=== PATIENT | male | born 1930 | race Caucasian/White ===

== ENCOUNTER → 2018-09-18 | Emergency (ER) | payer OTHER ==
[~2018-09-18] MED LIST: CEFTRIAXONE/SWI 1gm 1 GM/10 ML SYR ONE; FENTANYL CITR 100 MCG/2 ML ONE; FUROSEMIDE 20 MG/ 2ML VIAL ONE; IPRATROPIUM BROM 0.5MG/2.5ML ONE; LEVALBUTEROL 1.25 MG/3 ML NEB ONE; METHYLPREDNISOLONE 125 MG INJ ONE; METRONIDAZOLE 500mg IVPB 500 MG/100 ML BAG IV ONE; NA CHLORIDE 0.9% 1,000 ML ONE; ONDANSETRON 4 MG/2 ML VIAL ONE
[2018-09-18 13:53] LABS: Absolute Lymphocytes (CBC) 1.8 K/uL (0.7-4.9); Basophils % 0.8 % (0-1.3); Eosinophils % 4.5 % (0-4.4); Hematocrit 39.2 % (39.6-49.0); Lymphocytes % 24.8 % (15.3-44.8); Monocytes % 13.5 % (3.3-12.3); RBC Red Blood Cell Count 4.13 M/uL (4.33-5.43)
[2018-09-18 14:00] LABS: Protime INR 1.26
[2018-09-18 14:15] LABS: Albumin 3.7 g/dL (3.4-5.0); Bilirubin Direct 0.4 mg/dL (0-0.2); Bilirubin Total 0.8 mg/dL (0.2-1.0); Magnesium 2.3 mg/dL (1.8-2.4); Potassium 4.8 mmol/L (3.5-5.1); Protein, Total 7.2 g/dL (6.4-8.2); Troponin (Emerg Dept Use Only) 0.03 ng/mL (0.0-0.045)
--- NOTE | 2018-09-18 14:34 | RAD REPORT ---
EXAM DESCRIPTION: RAD - Chest Single View - 09/18/2018 2:26 pm CLINICAL HISTORY: COUGH Chest pain. COMPARISON: Chest Pa And Lat (2 Views) dated 03/05/2017; Chest Single View dated 11/14/2016; Chest Sing le View dated 04/13/2016; CHEST SINGLE VIEW dated 09/09/2015 FINDINGS: Portable technique limits examination quality. Small bilateral pleural effusions are seen with chronic prominence of the interstitial markings bilat erally. No focal pulmonary infiltrate typical of bacterial pneumonia is seen. The heart is mildly pro minent in size with a dual lead pacer device present. Sternotomy wires noted.Hardware is present in t he right clavicle. IMPRESSION: Predominate chronic interstitial opacities are present with small bilateral pleural effu sions noted.
--- NOTE | 2018-09-18 14:37 | RAD REPORT ---
EXAM DESCRIPTION: RAD - Foot Right 3 View - 09/18/2018 2:26 pm CLINICAL HISTORY: PAIN COMPARISON: No comparisons FINDINGS: Diffuse osteopenia is seen. No acute fracture or dislocation is evident. Small curvilinear radiopaque foreign body is seen along the plantar ball of the foot projecting between the first and second metatarsal heads.
--- NOTE | 2018-09-18 15:50 | EKG ---
Test Date: 2018-09-18 Test Time: 13:22:22 Manufacturing Technician: WILMER MEASUREMENT RESULTS: Intervals: Rate: 91 [place]: QRSD: 190 QT: 470 QTc: 578 [place]: P: WA: QRS: 236 T: 97 INTERPRETIVE STATEMENTS: Electronic ventricular pacemaker Compared to ECG 03/06/2017 06:48:45 No significant changes Electronically Signed On 09-18-18 15:50:03 CDT by Jeet Sheth
[2018-09-18 16:13] LABS: Urine Blood NEGATIVE (NEG); Urine Glucose NEGATIVE (NEG); Urine Protein NEGATIVE (NEG); Urine pH 5.5 (5.0-7.0)
--- NOTE | 2018-09-18 16:47 | RAD REPORT ---
EXAM DESCRIPTION: CT - Abdomen Pelvis Wo Contrast - 09/18/2018 4:17 pm CLINICAL HISTORY: Abdominal pain COMPARISON: 2014 TECHNIQUE: Computed axial tomography of the abdomen and pelvis was obtained. IV was not requested. O ral contrast was given. Coronal reconstructions performed. All CT scans are performed using dose optimization technique as appropriate and may include automated exposure control or mA/KV adjustment according to patient size. FINDINGS: The evaluation of solid organs and vessels is limited secondary to the lack of contrast a dministration. Gynecomastia. Right calcified pleural plaques. Sub centimeter left lower lobe nodule unchanged likely benign Moderate hiatal hernia. A cirrhotic liver suspected Spleen, pancreas, right adrenal appear grossly normal. Small left adrenal adenoma is suspected. The right kidney appears grossly normal. Small nonobstructing left renal calculi. 2.1 centimeter left renal mass unchanged probably a cyst. The appendix is normal. Diverticula stem from the colon without evidence of diverticulitis. Small amount of ascites within the abdomen and pelvis IMPRESSION: Cirrhosis suspected Small amount of ascites Nonobstructing left renal calculi
--- NOTE | 2018-09-18 17:35 | EDPHYS ---
Physician Documentation [facility] Name: Ishmael Cervantes Age: 88 yrs Sex: Male : 1930 Arrival Date: 09/18/2018 Time: 12:44 Bed 30 Private MD: ED Physician Nilton Perez HPI: 09/18 13:53 This 88 yrs old Male presents to ER via Wheelchair with complaints of denis Abdominal Pain, Breathing Difficulty, Ankle Injury. 13:53 The patient has shortness of breath at rest, with light activity. Onset: The denis symptoms/episode began/occurred 3 day(s) ago. Duration: The symptoms are continuous, and are unchanged since they started. The patient's shortness of breath has no apparent modifying factors. Associated signs and symptoms: The patient has no apparent associated signs or symptoms. Severity of symptoms: At their worst the symptoms were mild moderate in the emergency department the symptoms are unchanged. The patient has experienced similar episodes in the past, a few times. Historical: - Allergies: 12:50 Codeine; sv - PMHx: 12:50 ACUTE POSTHEMORRHAGIC ANEMIA; AFIB; ATHEROSCLEROSIS; CARDIAC PACEMAKER; COPD; sv DYSPHAGIA; enlarged prostate; generalized weakness; GI Bleed; Hypertension; muscle atrophy; NONTHEUMATIC AORTIC VALVE DISORDER; OBSTRUCTIVE SLEEP APNEA; Pneumonia; PULMONARY HYPERTENSION; - PSHx: 12:50 Heart valve replacement; fx arms; shoulder; foot; Cholecystectomy; sv - Immunization history:: Flu vaccine is not up to date. - Social history:: Smoking status: Patient/guardian denies using tobacco, Patient uses alcohol, occasionally. - Ebola Screening: : No symptoms or risks identified at this time. ROS: 13:54 Constitutional: Negative for fever, chills, and weight loss, Eyes: Negative for injury, denis pain, redness, and discharge, ENT: Negative for injury, pain, and discharge, Neck: Negative for injury, pain, and swelling, Cardiovascular: Negative for chest pain, palpitations, and edema, Back: Negative for injury and pain, : Negative for injury, bleeding, discharge, and swelling, Skin: Negative for injury, rash, and discoloration, Neuro: Negative for headache, weakness, numbness, tingling, and seizure, Psych: Negative for depression, anxiety, suicide ideation, homicidal ideation, and hallucinations, Allergy/Immunology: Negative for hives, rash, and allergies, Endocrine: Negative for neck swelling, polydipsia, polyuria, polyphagia, and marked weight changes, Hematologic/Lymphatic: Negative for swollen nodes, abnormal bleeding, and unusual bruising. 13:54 Respiratory: Positive for cough, shortness of breath, Negative for wheezing. Exam: 13:54 Constitutional: This is a well developed, well nourished patient who is awake, alert, denis and in no acute distress. Head/Face: Normocephalic, atraumatic. Eyes: Pupils equal round and reactive to light, extra-ocular motions intact. Lids and lashes normal. Conjunctiva and sclera are non-icteric and not injected. Cornea within normal limits. Periorbital areas with no swelling, redness, or edema. ENT: Nares patent. No nasal discharge, no septal abnormalities noted. Tympanic membranes are normal and external auditory canals are clear. Oropharynx with no redness, swelling, or masses, exudates, or evidence of obstruction, uvula midline. Mucous membranes moist. Neck: Trachea midline, no thyromegaly or masses palpated, and no cervical lymphadenopathy. Supple, full range of motion without nuchal rigidity, or vertebral point tenderness. No Meningismus. Chest/axilla: Normal chest wall appearance and motion. Nontender with no deformity. No lesions are appreciated. Cardiovascular: Regular rate and rhythm with a normal S1 and S2. No gallops, murmurs, or rubs. Normal PMI, no JVD. No pulse deficits. Respiratory: Lungs have equal breath sounds bilaterally, clear to auscultation and percussion. No rales, rhonchi or wheezes noted. No increased work of breathing, no retractions or nasal flaring. Back: No spinal tenderness. No costovertebral tenderness. Full range of motion. Male : Normal genitalia with no discharge or lesions. Skin: Warm, dry with normal turgor. Normal color with no rashes, no lesions, and no evidence of cellulitis. MS/ Extremity: Pulses equal, no cyanosis. Neurovascular intact. Full, normal range of motion. Neuro: Awake and alert, GCS 15, oriented to person, place, time, and situation. Cranial nerves II-XII grossly intact. Motor strength 5/5 in all extremities. Sensory grossly intact. Cerebellar exam normal. Normal gait. Psych: Awake, alert, with orientation to person, place and time. Behavior, mood, and affect are within normal limits. 13:54 Abdomen/GI: Inspection: abdomen appears normal, Bowel sounds: normal, Palpation: mild abdominal tenderness, moderate abdominal tenderness, in the left upper quadrant and left lower quadrant. Vital Signs: 12:50 BP 124 / 68; Pulse 87; Resp 20; Temp 97.8(O); Pulse Ox 100% ; Height 5 ft. 8 in. sv (172.72 cm); 13:30 BP 130 / 78; Pulse 75; Resp 19; Pulse Ox 100% on 2 lpm NC; ca1 14:00 BP 135 / 78; Pulse 83; Resp 19; Pulse Ox 100% on 2 lpm NC; ca1 14:30 BP 149 / 83; Pulse 82; Resp 22; Pulse Ox 100% on 2 lpm NC; ca1 15:00 BP 132 / 82; Pulse 79; Resp 17; Pulse Ox 100% on 2 lpm NC; ca1 16:32 BP 113 / 78; Pulse 83; Resp 17; Temp 98.0; Pulse Ox 98% ; lt1 17:00 BP 112 / 74; Pulse 85; Resp 21; Pulse Ox 97% on R/A; ca1 17:30 BP 127 / 77; Pulse 97; Resp 18; Pulse Ox 99% on R/A; ca1 18:00 BP 132 / 77; Pulse 108; Resp 21; Pulse Ox 98% on R/A; ca1 18:45 BP 130 / 71; Pulse 77; Resp 22; Pulse Ox 100% on R/A; ca1 19:30 BP 126 / 63; Pulse 88; Resp 24; Pulse Ox 97% on R/A; ca1 20:00 BP 115 / 69; Pulse 80; Resp 21; Pulse Ox 99% on R/A; ca1 20:30 BP 116 / 66; Pulse 90; Resp 20; Pulse Ox 100% on R/A; ca1 21:00 BP 127 / 75; Pulse 76; Resp 20; Pulse Ox 100% on R/A; ca1 21:30 BP 129 / 70; Pulse 82; Resp 19; Pulse Ox 100% on R/A; ca1 22:15 BP 131 / 75; Pulse 90; Resp 20; Pulse Ox 100% on R/A; ca1 MDM: 12:59 Patient medically screened. [facility] 13:56 Data reviewed: vital signs, nurses notes, lab test result(s), EKG, radiologic studies, [facility] CT scan, plain films. 09/18 13:28 Order name: Basic Metabolic Panel; Complete Time: 14:49 [facility] 09/18 13:28 Order name: CBC with Diff; Complete Time: 14:49 [facility] 09/18 13:28 Order name: LFT's; Complete Time: 14:49 [facility] 09/18 13:28 Order name: Magnesium; Complete Time: 14:49 [facility] 09/18 13:28 Order name: NT PRO-BNP; Complete Time: 14:49 [facility] 09/18 13:28 Order name: PT-INR; Complete Time: 14:49 [facility] 09/18 13:28 Order name: Troponin (emerg Dept Use Only); Complete Time: 14:49 [facility] 09/18 13:28 Order name: XRAY Chest (1 view); Complete Time: 14:49 [facility] 09/18 13:28 Order name: Lipase; Complete Time: 14:49 [facility] 09/18 13:28 Order name: Urine Culture [facility] 09/18 13:28 Order name: Blood Culture Adult (2) [facility] 09/18 13:53 Order name: Lactate; Complete Time: 16:10 [facility] 09/18 14:49 Order name: Urine Dipstick--Ancillary (enter results); Complete Time: 17:25 09/18 18:26 Order name: Lactate Sepsis 2 HR Follow-up [facility] 09/18 13:28 Order name: EKG; Complete Time: 13:29 [facility] 09/18 13:28 Order name: Cardiac monitoring; Complete Time: 13:56 [facility] 09/18 13:53 Order name: Foot Right 3 View XRAY; Complete Time: 14:49 [facility] 09/18 13:58 Order name: XRAY Ankle RIGHT 3 view; Complete Time: 14:49 [facility] 09/18 14:51 Order name: Abdomen ; Complete Time: 17:25 [facility] 09/18 13:28 Order name: EKG - Nurse/Tech; Complete Time: 13:56 [facility] 09/18 13:28 Order name: IV Saline Lock; Complete Time: 13:56 [facility] 09/18 13:28 Order name: Labs collected and sent; Complete Time: 13:56 [facility] 09/18 13:28 Order name: O2 Per Protocol; Complete Time: 13:56 [facility] 09/18 13:28 Order name: O2 Sat Monitoring; Complete Time: 13:56 [facility] 09/18 13:28 Order name: Urine Dipstick-Ancillary (obtain specimen); Complete Time: 15:09 [facility] Administered Medications: Discontinued: NS 0.9% 1000 ml IV at 125 ml/hr continuous 13:40 Drug: NS 0.9% 1000 ml Route: IV; Rate: 125 ml/hr; Site: right antecubital; ca1 13:58 Drug: Zofran 4 mg Route: IVP; Site: right antecubital; ca1 15:00 Follow up: Response: No adverse reaction; Nausea is decreased ca1 17:04 Follow up: Response: No adverse reaction; Marked relief of symptoms mg2 14:00 Drug: fentaNYL (PF) 25 mcg Route: IVP; Site: right antecubital; ca1 15:00 Follow up: Response: No adverse reaction; Pain is decreased ca1 17:03 Drug: Flagyl 500 mg Volume: 100 ml; Route: IVPB; Rate: 200 ml/hr; Infused Over: 30 mg2 mins; Site: right antecubital; 18:00 Follow up: Response: No adverse reaction; IV Status: Completed infusion ca1 17:04 Drug: Rocephin - (cefTRIAXone) 1 grams Route: IVPB; Infused Over: 30 mins; Site: right mg2 antecubital; 23:41 Follow up: IV Status: Completed infusion; IVP per pharmacy protocol ca1 18:51 Drug: Xopenex 1.25 mg Route: Inhalation; mg2 18:51 Drug: AtroVENT Aerosol 0.5 mg Route: Inhalation; mg2 18:51 Drug: SOLU-Medrol 125 mg Route: IVP; Site: right antecubital; mg2 20:00 Follow up: Response: No adverse reaction; Marked relief of symptoms ca1 18:51 Drug: Lasix 20 mg Route: IVP; Site: right antecubital; mg2 20:20 Follow up: Urine output 1200 ml; Response: No adverse reaction ca1 20:02 Drug: fentaNYL (PF) 25 mcg Route: IVP; Site: right antecubital; ca1 21:00 Follow up: Response: No adverse reaction; Pain is decreased ca1 Disposition: 09/18/18 17:34 Hospitalization ordered by Juan Dominguez for Inpatient Admission. Preliminary diagnosis are Abdominal tenderness, Dyspnea, Sprain of ankle, Unspecified kidney failure, Unspecified combined systolic (congestive) and diastolic (congestive) heart failure, Pulmonary fibrosis, unspecified, Chronic obstructive pulmonary disease, unspecified. - Bed requested for Telemetry/MedSurg (Inpatient). - Status is Inpatient Admission. ca1 - Condition is Fair. - Problem is new. - Symptoms have improved. UTI on Admission? No Signatures: Dispatcher [employer] [facility] Della Painting RN RN sv Anderson, Corey, MD MD cha Gardose, Michele, RN RN [facility] Rosa Lion RN RN ca1 Corrections: (The following items were deleted from the chart) 14:51 13:54 Abdomen Pelvis W Con+CT.RAD.BRZ ordered. [facility] EDMA 17:35 17:34 Hospitalization Ordered by [facility] for Observation. Preliminary [facility] diagnosis is Abdominal tenderness; Dyspnea. Bed requested for Telemetry/MedSurg (observation). Status is Observation. Condition is Fair. Problem is new. Symptoms have improved. UTI on Admission? No. denis 17:35 17:35 09/18/2018 17:34 Hospitalization Ordered by [facility] for Observation. [facility] Preliminary diagnosis is Abdominal tenderness; Dyspnea; Sprain of ankle. Bed requested for Telemetry/MedSurg (observation). Status is Observation. Condition is Fair. Problem is new. Symptoms have improved. UTI on Admission? No. denis 17:37 17:35 09/18/2018 17:34 Hospitalization Ordered by [facility] for Observation. [facility] Preliminary diagnosis is Abdominal tenderness; Dyspnea; Sprain of ankle; Unspecified kidney failure. Bed requested for Telemetry/MedSurg (observation). Status is Observation. Condition is Fair. Problem is new. Symptoms have improved. UTI on Admission? No. denis 17:37 17:37 09/18/2018 17:34 Hospitalization Ordered by [facility] for Observation. [facility] Preliminary diagnosis is Abdominal tenderness; Dyspnea; Sprain of ankle; Unspecified kidney failure; Unspecified combined systolic (congestive) and diastolic (congestive) heart failure; Pulmonary fibrosis, unspecified; Chronic obstructive pulmonary disease, unspecified. Bed requested for Telemetry/MedSurg (observation). Status is Observation. Condition is Fair. Problem is new. Symptoms have improved. UTI on Admission? No. denis 18:02 17:37 09/18/2018 17:34 Hospitalization Ordered by [facility] for Inpatient denis Admission. Preliminary diagnosis is Abdominal tenderness; Dyspnea; Sprain of ankle; Unspecified kidney failure; Unspecified combined systolic (congestive) and diastolic (congestive) heart failure; Pulmonary fibrosis, unspecified; Chronic obstructive pulmonary disease, unspecified. Bed requested for Telemetry/MedSurg (Inpatient). Status is Inpatient Admission. Condition is Fair. Problem is new. Symptoms have improved. UTI on Admission? No. [facility] 18:54 18:02 09/18/2018 17:34 Hospitalization Ordered by Juan Dominguez DO for Observation. [facility] Preliminary diagnosis is Abdominal tenderness; Dyspnea; Sprain of ankle; Unspecified kidney failure; Unspecified combined systolic (congestive) and diastolic (congestive) heart failure; Pulmonary fibrosis, unspecified; Chronic obstructive pulmonary disease, unspecified. Bed requested for Telemetry/MedSurg (observation). Status is Observation. Condition is Fair. Problem is new. Symptoms have improved. UTI on Admission? No. denis 23:40 18:54 09/18/2018 17:34 Hospitalization Ordered by Juan Dominguez DO for Inpatient ca1 Admission. Preliminary diagnosis is Abdominal tenderness; Dyspnea; Sprain of ankle; Unspecified kidney failure; Unspecified combined systolic (congestive) and diastolic (congestive) heart failure; Pulmonary fibrosis, unspecified; Chronic obstructive pulmonary disease, unspecified. Bed requested for Telemetry/MedSurg (Inpatient). Status is Inpatient Admission. Condition is Fair. Problem is new. Symptoms have improved. UTI on Admission? No. denis
--- NOTE | 2018-09-18 17:35 | ER ---
Nurse's Notes [facility] Name: Ishmael Cervantes Age: 88 yrs Sex: Male : 1930 Arrival Date: 09/18/2018 Time: 12:44 Bed 30 Private MD: Diagnosis: Abdominal tenderness;Dyspnea;Sprain of ankle;Unspecified kidney failure;Unspecified combined systolic (congestive) and diastolic (congestive) heart failure;Pulmonary fibrosis, unspecified;Chronic obstructive pulmonary disease, unspecified Presentation: 09/18 12:44 Presenting complaint: [facility] states[facility] after rolling over sv it with a wheelchair. abd pain (known hiatal hernia) sent for a CT scan. Transition of care: patient was not received from another setting of care. Onset of symptoms is unknown. Care prior to arrival: None. 12:44 Method Of Arrival: Wheelchair sv 12:44 Acuity: JORGE 3 sv 13:05 Risk Assessment: Do you want to hurt yourself or someone else? Patient reports no ca1 desire to harm self or others. 13:05 Initial Sepsis Screen: Does the patient meet any 2 criteria? No. Patient's initial ca1 sepsis screen is negative. Does the patient have a suspected source of infection? No. Patient's initial sepsis screen is negative. Historical: - Allergies: 12:50 Codeine; sv - PMHx: 12:50 ACUTE POSTHEMORRHAGIC ANEMIA; AFIB; ATHEROSCLEROSIS; CARDIAC PACEMAKER; COPD; sv DYSPHAGIA; enlarged prostate; generalized weakness; GI Bleed; Hypertension; muscle atrophy; NONTHEUMATIC AORTIC VALVE DISORDER; OBSTRUCTIVE SLEEP APNEA; Pneumonia; PULMONARY HYPERTENSION; - PSHx: 12:50 Heart valve replacement; fx arms; shoulder; foot; Cholecystectomy; sv - Immunization history:: Flu vaccine is not up to date. - Social history:: Smoking status: Patient/guardian denies using tobacco, Patient uses alcohol, occasionally. - Ebola Screening: : No symptoms or risks identified at this time. Screenin:02 Abuse screen: Denies threats or abuse. Denies injuries from another. Nutritional ca1 screening: No deficits noted. Tuberculosis screening: No symptoms or risk factors identified. Fall Risk None identified. Assessment: 13:05 General: Appears in no apparent distress. comfortable, Behavior is calm, cooperative, ca1 appropriate for age. Pain: Complains of pain in abdomen Pain does not radiate. Pain currently is 7 out of 10 on a pain scale. Quality of pain is described as throbbing, Pain began chronic pain started years ago Is chronic. Neuro: Level of Consciousness is awake, alert, obeys commands, Oriented to person, place, time, situation. Cardiovascular: Heart tones S1 S2 present Capillary refill < 3 seconds Patient's skin is warm and dry. Rhythm is Respiratory: Reports shortness of breath Airway is patent Respiratory effort is even, unlabored, Respiratory pattern is regular, symmetrical, Breath sounds are clear bilaterally. GI: Abdomen is round non-distended, Bowel sounds present X 4 quads. Abd is soft X 4 quads Abdomen is tender to palpation in epigastric area. : No deficits noted. No signs and/or symptoms were reported regarding the genitourinary system. EENT: No deficits noted. No signs and/or symptoms were reported regarding the EENT system. Derm: Skin is fragile, is thin, has skin tears on on both arms Bruising that is dark purple, on right arm and left arm. Musculoskeletal: Circulation, motion, and sensation intact. Capillary refill < 3 seconds, Range of motion: limited in right ankle. 14:00 Reassessment: Patient appears in no apparent distress at this time. Patient and/or ca1 family updated on plan of care and expected duration. Pain level reassessed. Patient is alert, oriented x 3, equal unlabored respirations, skin warm/dry/pink. 15:00 Reassessment: Patient appears in no apparent distress at this time. Patient and/or ca1 family updated on plan of care and expected duration. Pain level reassessed. Patient is alert, oriented x 3, equal unlabored respirations, skin warm/dry/pink. Pending CT scan. 15:07 Reassessment: Critical Lab Result received from lab Lactate 2.8. Provider Informed. ca1 16:00 Reassessment: Patient appears in no apparent distress at this time. Patient and/or ca1 family updated on plan of care and expected duration. Pain level reassessed. Patient is alert, oriented x 3, equal unlabored respirations, skin warm/dry/pink. 16:05 Reassessment: Wheeled to CT scan. ca1 17:01 Reassessment: Patient appears in no apparent distress at this time. Patient and/or ca1 family updated on plan of care and expected duration. Pain level reassessed. Patient is alert, oriented x 3, equal unlabored respirations, skin warm/dry/pink. 18:00 Reassessment: Patient appears in no apparent distress at this time. Patient and/or ca1 family updated on plan of care and expected duration. Pain level reassessed. Patient is alert, oriented x 3, equal unlabored respirations, skin warm/dry/pink. 19:00 Reassessment: Patient appears in no apparent distress at this time. Patient and/or ca1 family updated on plan of care and expected duration. Pain level reassessed. Patient is alert, oriented x 3, equal unlabored respirations, skin warm/dry/pink. 20:00 Reassessment: Patient appears in no apparent distress at this time. Patient and/or ca1 family updated on plan of care and expected duration. Pain level reassessed. Patient is alert, oriented x 3, equal unlabored respirations, skin warm/dry/pink. 20:00 Reassessment: Dr. Chapa at bedside. Ordered for discharge. ca1 21:00 Reassessment: Patient appears in no apparent distress at this time. Patient and/or ca1 family updated on plan of care and expected duration. Pain level reassessed. Patient is alert, oriented x 3, equal unlabored respirations, skin warm/dry/pink. 22:00 Reassessment: Patient appears in no apparent distress at this time. Patient and/or ca1 family updated on plan of care and expected duration. Pain level reassessed. Patient is alert, oriented x 3, equal unlabored respirations, skin warm/dry/pink. Called son to inform of discharge and pear picker son. Talked to daughter in-law. Said they cannot pear picker Mr. Quiñones. [facility]. Given the number of the complex manager. Ms. Lopez - Charge nurse contacted the nursing care attendant. 22:15 Reassessment: Discharged at [facility] By Dr. Chapa. ca1 22:33 Reassessment: spoke to Sue Bailey complex manager of [facility] for bb transportation of pt back to facility [phone]. 23:33 Reassessment: Patient appears in no apparent distress at this time. Patient is alert, ca1 oriented x 3, equal unlabored respirations, skin warm/dry/pink. Pt picked up by daughter in-law. Pt, alert, oriented x4 , ambulatory with assist. VS stable. Wheeled outside to daughter's truck. Vital Signs: 12:50 BP 124 / 68; Pulse 87; Resp 20; Temp 97.8(O); Pulse Ox 100% ; Height 5 ft. 8 in. sv (172.72 cm); 13:30 BP 130 / 78; Pulse 75; Resp 19; Pulse Ox 100% on 2 lpm NC; ca1 14:00 BP 135 / 78; Pulse 83; Resp 19; Pulse Ox 100% on 2 lpm NC; ca1 14:30 BP 149 / 83; Pulse 82; Resp 22; Pulse Ox 100% on 2 lpm NC; ca1 15:00 BP 132 / 82; Pulse 79; Resp 17; Pulse Ox 100% on 2 lpm NC; ca1 16:32 BP 113 / 78; Pulse 83; Resp 17; Temp 98.0; Pulse Ox 98% ; lt1 17:00 BP 112 / 74; Pulse 85; Resp 21; Pulse Ox 97% on R/A; ca1 17:30 BP 127 / 77; Pulse 97; Resp 18; Pulse Ox 99% on R/A; ca1 18:00 BP 132 / 77; Pulse 108; Resp 21; Pulse Ox 98% on R/A; ca1 18:45 BP 130 / 71; Pulse 77; Resp 22; Pulse Ox 100% on R/A; ca1 19:30 BP 126 / 63; Pulse 88; Resp 24; Pulse Ox 97% on R/A; ca1 20:00 BP 115 / 69; Pulse 80; Resp 21; Pulse Ox 99% on R/A; ca1 20:30 BP 116 / 66; Pulse 90; Resp 20; Pulse Ox 100% on R/A; ca1 21:00 BP 127 / 75; Pulse 76; Resp 20; Pulse Ox 100% on R/A; ca1 21:30 BP 129 / 70; Pulse 82; Resp 19; Pulse Ox 100% on R/A; ca1 22:15 BP 131 / 75; Pulse 90; Resp 20; Pulse Ox 100% on R/A; ca1 ED Course: 12:44 Patient arrived in ED. mr 12:48 Triage completed. sv 12:50 Arm band placed on. sv 12:59 Nilton Perez MD is Attending Physician. denis 13:02 Rosa Lion RN is Primary Nurse. ca1 13:02 Patient has correct armband on for positive identification. Fall risk band placed. ca1 Placed in gown. Bed in low position. Side rails up X 1. dip unit operator on. Pulse ox on. NIBP on. Warm blanket given. 13:38 EKG done, by information technology specialist. reviewed by Nilton Perez MD. sm3 13:40 Inserted saline lock: 20 gauge in right antecubital area, using aseptic technique. ca1 Blood collected. 14:13 X-ray completed. Portable x-ray completed in exam room. Patient tolerated procedure sw well. 14:26 XRAY Chest (1 view) In Process Unspecified. EDMS 14:26 Foot Right 3 View XRAY In Process Unspecified. EDMS 14:26 XRAY Ankle RIGHT 3 view In Process Unspecified. EDMS 14:30 Urine collected: clean catch specimen, beronica colored, Amount Voided: 160mL. ca1 16:[address] sj 16:13 CT completed. Patient tolerated procedure well. Patient moved back from CT. vm2 16:18 Abdomen In Process Unspecified. EDMS 17:33 Juan Dominguez DO is Hospitalizing Provider. denis 23:37 No provider procedures requiring assistance completed. IV discontinued, intact, ca1 bleeding controlled, No redness/swelling at site. Pressure dressing applied. Administered Medications: Discontinued: NS 0.9% 1000 ml IV at 125 ml/hr continuous 13:40 Drug: NS 0.9% 1000 ml Route: IV; Rate: 125 ml/hr; Site: right antecubital; ca1 13:58 Drug: Zofran 4 mg Route: IVP; Site: right antecubital; ca1 15:00 Follow up: Response: No adverse reaction; Nausea is decreased ca1 17:04 Follow up: Response: No adverse reaction; Marked relief of symptoms mg2 14:00 Drug: fentaNYL (PF) 25 mcg Route: IVP; Site: right antecubital; ca1 15:00 Follow up: Response: No adverse reaction; Pain is decreased ca1 17:03 Drug: Flagyl 500 mg Volume: 100 ml; Route: IVPB; Rate: 200 ml/hr; Infused Over: 30 mg2 mins; Site: right antecubital; 18:00 Follow up: Response: No adverse reaction; IV Status: Completed infusion ca1 17:04 Drug: Rocephin - (cefTRIAXone) 1 grams Route: IVPB; Infused Over: 30 mins; Site: right mg2 antecubital; 23:41 Follow up: IV Status: Completed infusion; IVP per pharmacy protocol ca1 18:51 Drug: Xopenex 1.25 mg Route: Inhalation; mg2 18:51 Drug: AtroVENT Aerosol 0.5 mg Route: Inhalation; mg2 18:51 Drug: SOLU-Medrol 125 mg Route: IVP; Site: right antecubital; mg2 20:00 Follow up: Response: No adverse reaction; Marked relief of symptoms ca1 18:51 Drug: Lasix 20 mg Route: IVP; Site: right antecubital; mg2 20:20 Follow up: Urine output 1200 ml; Response: No adverse reaction ca1 20:02 Drug: fentaNYL (PF) 25 mcg Route: IVP; Site: right antecubital; ca1 21:00 Follow up: Response: No adverse reaction; Pain is decreased ca1 Output: 20:20 Urine: 1200ml; Total: 1200ml. ca1 Outcome: 17:34 Decision to Hospitalize by Provider. [facility] 23:37 Discharged to home via wheelchair, with daughter-inlaw ca1 23:37 Condition: stable 23:37 Discharge instructions given to patient, family, Instructed on discharge instructions, follow up and referral plans. Demonstrated understanding of instructions, follow-up care. 23:40 Patient left the ED. ca1 Signatures: Dispatcher [employer] EDMS Della Painting RN RN sv Anderson, Corey, MD MD cha Rivera, Julita Chung, Jessica oLpez RN RN bb Warren, Shannon sw McGuire, Victoria 2 Gasper Botello RN RN mg2 Antonia Briones 3 Rosa Lion RN RN ca1 Eloisa Nicolas lt1 Corrections: (The following items were deleted from the chart) 12:50 12:44 Presenting complaint: [facility] states[facility] pain after rolling sv over it with a wheelchair. abd pain (known hiatal hernia). sv 13: 13:02 General: Appears in no apparent distress. comfortable, Behavior is calm, ca1 cooperative, appropriate for age, ca1 13: 13:02 Pain: Denies pain. ca1 ca1 13: 13:02 Neuro: Level of Consciousness is awake, alert, obeys commands, Oriented to ca1 person, place, time, situation, Reports dizziness, since 4 days ago. ca1 13: 13:02 Cardiovascular: Heart tones S1 S2 present Capillary refill < 3 seconds Patient's ca1 skin is warm and dry. ca1 :03 15: Respiratory: Airway is patent Respiratory effort is even, unlabored, Respiratory ca1 pattern is regular, symmetrical, Breath sounds are clear bilaterally. ca1 : GI: Abdomen is round non-distended, Bowel sounds present X 4 quads. Abd is soft ca1 and non tender X 4 quads. Patient currently denies pain, vomiting, ca1 :03 15: : No deficits noted. No signs and/or symptoms were reported regarding the ca1 genitourinary system. ca1 :03 15: EENT: No deficits noted. No signs and/or symptoms were reported regarding the ca1 EENT system. ca1 :03 15: Derm: Skin is intact, is healthy with good turgor, Skin is pink, warm \T\ dry. ca1 ca1 : Musculoskeletal: Circulation, motion, and sensation intact. Capillary refill < 3 ca1 seconds, ca1 22:48 19:00 Reassessment: Patient appears in no apparent distress at this time. Patient ca1 and/or family updated on plan of care and expected duration. Pain level reassessed. Patient is alert, oriented x 3, equal unlabored respirations, skin warm/dry/pink. ca1 23:39 23:33 Reassessment: Patient appears in no apparent distress at this time. Patient is ca1 alert, oriented x 3, equal unlabored respirations, skin warm/dry/pink. Pt picked up by daughter in-law. Pt, alert, oriented x4 , ambulatory with assist. VS stable. Wheeled outside to daughter's truck. ca1
--- NOTE | 2018-09-18 20:53 | P.CNS ---
Date of Consult: 09/18/18 Requesting Physician: Nilton Perez Chief Complaint: right ankle pain History of Present Illness: Mr Cervantes is an 88 years old male with multiple medical problems, including COPD, asbestosis, HTN, AVR, pacemaker placement, who about 1 week ago, he slam a door over his right ankle. Since so, he has been significant pain. He was also complaining of abdominal pain, which is not new. The patient states that has had the same pain for several years already and it is secondary to a hiatal hernia. He has chronic dyspnea, but he denied worsening SOB or cough. No history of fever or chills. CT abd/pelvis showed no acute abnormalities. Lab work is remarkable for normal WBC count. Lactate was elevated, UA trace leukocyte esterase. The patient was in non-distress, and he told me that what is most baddering him is the ankle pain. Ankle XR shows no acute fractures or dislocation. right foot XR shows a small curvilinear radiopaque foreign body, which is seen along the plantar ball of the foot projecting between the first and second metatarsal heads. Allergies codeine Allergy (Mild, Verified 03/05/17 22:10) Nausea/Vomiting Home medications list reviewed: Yes Home Medications: Acetaminophen [Feverall] 650 mg RC Q6H PRN 09/07/15 Docusate Sodium 100 mg PO DAILY PRN 09/07/15 Furosemide [Lasix*] 40 mg PO BIDL 09/07/15 Guaifenesin [Jaki-Tussin] 5 ml PO Q6H PRN 09/07/15 Omeprazole 20 mg PO BID 09/07/15 Polyethylene Glycol 3350 [Miralax] 1 packet PO BID PRN 09/07/15 metOLazone [Zaroxolyn*] 2.5 mg PO DAILY PRN 09/07/15 Aspirin Chewable [Aspirin Chewable*] 81 mg PO DAILY #30 tab.chew 03/06/17 Atorvastatin Calcium [Lipitor] 10 mg PO BEDTIME #30 tab 03/06/17 Bisacodyl 10 mg RC PRN PRN 03/06/17 Cholecalciferol (Vitamin D3) [Vitamin D3] 1,000 unit PO DAILY 03/06/17 Cyanocobalamin [Vitamin B-12*] 1,000 mcg PO DAILY 03/06/17 Diphenhydramine HCl [Benadryl Allergy] 25 mg PO PRN PRN 03/06/17 Febuxostat [Uloric] 40 mg PO DAILY 03/06/17 Gabapentin 400 mg PO BEDTIME 03/06/17 Hydrocodone/Acetaminophen [Hydrocodone-Acetamin 5-325 mg] 1 tab PO PRN PRN 03/06 Lisinopril [Zestril] 2.5 mg PO BEDTIME 03/06/17 Loratadine [Claritin*] 1 tab PO DAILY 03/06/17 Melatonin 6 mg PO BEDTIME 03/06/17 Metoprolol Tartrate 12.5 mg PO BID 03/06/17 Mirtazapine [Remeron] 7.5 mg PO DAILY 03/06/17 Multivitamin [Daily Multiple Vitamin] 1 tab PO DAILY 03/06/17 Nitroglycerin [Nitrostat*] 0.4 mg SL UD PRN #30 tab 03/06/17 Promethazine HCl 25 mg PO PRN PRN 03/06/17 Spironolactone [Aldactone] 25 mg PO DAILY 03/06/17 Zolpidem Tartrate [Ambien] 10 mg PO BEDTIME 03/06/17 metOLazone [Zaroxolyn*] 2.5 mg PO PRN PRN 03/06/17 - Past Medical/Surgical History Diabetic: No -: COPD asbestosis -: pneumonia -: anemia -: HTN -: CHF -: muscle weakness -: neuropathy -: pulmonary HTN -: dysphagia -: enalrged prostate -: GI bleed -: aortic valve disorder -: Pacemaker -: aortic valve replacement -: bilateral elbow surgery -: bilateral foot surgery -: bilateral wrist surgery - Family History Mother Medical History: Stroke Sister Notes: [place] Father Notes: [place] - Social History Alcohol use: No CD- Drugs: No Caffeine use: No Place of Residence: [place] Review of Systems 10-point ROS is otherwise unremarkable Physical Examination General: Alert, In no apparent distress HEENT: Atraumatic, PERRLA, Mucous membr. moist/pink, EOMI, Sclerae nonicteric Neck: Supple, 2+ carotid pulse no bruit, No LAD, Without JVD or thyroid abnormality Respiratory: Clear to auscultation bilaterally, Normal air movement Cardiovascular: Regular rate/rhythm, No gallops Gastrointestinal: Normal bowel sounds, No tenderness Musculoskeletal: No tenderness, Other (right ankle pain) Integumentary: No rashes Neurological: Normal speech, Normal tone, Normal affect Lymphatics: No axilla or inguinal lymphadenopathy Laboratory Data (last 24 hrs) 09/18/18 13:44: PT 14.7 H, INR 1.26 09/18/18 13:44: WBC 7.1, Hgb 12.6 L, Hct 39.2 L, Plt Count 237 09/18/18 13:44: Sodium 140, Potassium 4.8, BUN 25 H, Creatinine 1.84 H, Glucose 91, Magnesium 2.3, Total Bilirubin 0.8, AST 24, ALT 21, Alkaline Phosphatase 82 , Lipase 222 - Problems (1) Right ankle pain Current Visit: Yes Status: Acute (2) UTI (urinary tract infection) Current Visit: Yes Status: Acute Qualifiers: Urinary tract infection type: site unspecified Hematuria presence: without hematuria Qualified Code(s): N39.0 - Urinary tract infection, site not specified (3) Abdominal pain Onset Date: 10/07/14 Current Visit: No Status: Acute Qualifiers: Abdominal location: generalized Qualified Code(s): R10.84 - Generalized abdominal pain (4) CKD (chronic kidney disease) Current Visit: No Status: Chronic Qualifiers: Chronic kidney disease stage: stage 4 (severe) Qualified Code(s): N18.4 - Chronic kidney disease, stage 4 (severe) (5) COPD (chronic obstructive pulmonary disease) Current Visit: No Status: Chronic Qualifiers: COPD type: unspecified COPD Qualified Code(s): J44.9 - Chronic obstructive pulmonary disease, unspecified (6) Cirrhosis Current Visit: No Status: Chronic Conclusions/Impression: The patient came to ED because right ankle pain. There is no acute fractures or dislocation. His abdominal pain is chronic, and there is no acute intrabdominal process. His UA is slightly abnormal, he already received IV Rocephin, I recommend to continue with oral antibiotics for 7 days, and follow up with PCP. Also recommend physical therapy and pain medication for his right ankle. At this point, the patient will not benefit from a hospital admission. He is stable to be discharge back to the halfway. Critical Care: No
== END ==
LOC: ER 12:41
DX: I50.40 Unspecified combined systolic (congestive) and diastolic (congestive) heart failure (principal); J84.10 Pulmonary fibrosis, unspecified; J44.9 Chronic obstructive pulmonary disease, unspecified; N19 Unspecified kidney failure; R10.819 Abdominal tenderness, unspecified site; S93.401A Sprain of unspecified ligament of right ankle, initial encounter; I10 Essential (primary) hypertension; I48.91 Unspecified atrial fibrillation; Z88.5 Allergy status to narcotic agent; Z95.0 Presence of cardiac pacemaker; Z95.4 Presence of other heart-valve replacement
CPT/HCPCS: 93005; 87040 ×2; 87088; 85025; 87086; 80048; 36415; 83735; 85610; 80076; 83605 ×2; 81003; 84484; 83690; 83880; 74176; 71045; 73630; 73610; J1940; J3010; J0696; J7030; J2930; J2405; 96365; 96366; 96375; 99285